=== PATIENT | female | born 1945 | race Caucasian/White ===

== ENCOUNTER 2017-07-22 13:56 | Inpatient (IN) | payer OTHER ==
--- NOTE | 2017-07-22 16:52 | PDGENHP ---
History and Physical - Chief Complaint CAD - History of Present Illness This is a 72F who was evaluated today at [facility] in [place] for c/o 1 week h/o of worsening exertional chest pain and hypertension. LHC was performed and revealed severe 3VD in need of surgical revascularization and pt was transferred to [facility] for CABG on 07/[address] Boyce. Pt is currently comfortable without complaints. She was recently diagnosed with HTN and started on HCTZ. She had her knee replaced about 4 weeks ago without issues. History Information - Allergies/Home Medication List Allergies/Adverse Reactions: Penicillins Allergy (Verified 07/22/17 16:52) Rash I have personally reviewed and updated: family history, medical history, social history, surgical history - Past Medical History arthritis (rheumatoid), hypertension - Surgical History Additional surgical history: right total knee replacement 06/09/2017 (Dr. Amish Kramer) - Family History Positive for: CAD, stroke - Social History Smoking Status: Never smoked Alcohol Use: Occasionally (1 glass wine/night) Drug Use: None Review of Systems Constitutional: Reports: no symptoms EENMT: Reports: no symptoms Cardiac: Reports: no symptoms Respiratory: Reports: no symptoms Gastrointestinal: Reports: no symptoms Genitourinary: Reports: no symptoms Muscolosketal: Reports: no symptoms Skin: Reports: no symptoms Neurological: Reports: no symptoms Physical Exam Temp Pulse Resp BP Pulse Ox 36.7 C 61 18 132/71 H 92 07/22/17 15:41 07/22/17 15:41 07/22/17 15:41 07/22/17 15:41 07/22/17 15:41 Constitutional: no apparent distress, appears nourished, not in pain Eyes: anicteric sclera Ears, Nose, Mouth, Throat: moist mucous membranes, hearing normal, ears appear normal Cardiovascular: regular rate and rhythym, No systolic murmur Respiratory: no respiratory distress, no rales or rhonchi, clear to auscultation Gastrointestinal: soft, non-tender abdomen, No distension Genitourinary: no bladder fullness Skin: warm, normal color Musculoskeletal: full muscle strength, other (right knee with well-healed scar) Neurologic: AAOx3, No weakness Psychiatric: interacting appropriately, not anxious, not encephalopathic, thought process linear Lab Data & Imaging Review 07/21/17 BMP: Na 139, K 3.4, Cl 103, CO2 28, BUN 21, Cr 0.9, Glucose 114 CBC: WBC 8.0, HGB 14.6, HCT 44.6, PLT 323 Chest X-Ray results: other (pending) Assessment & Plan Assessment: 72 F with severe CAD Plan: - CABG with Dr. Boyce 07/23/17 - Labs done at [facility] reviewed - Carotid US, CXR, type & screen pending
[2017-07-22] MEDS ORDERED: MUPIROCIN 2% 22 GM OINT NS ONE (16:53)
[2017-07-22] MEDS ORDERED: MANNITOL 20% 50 GM/250 ML BAG IV ONE (17:45)
[2017-07-22 17:59] LABS: HEMOGLOBIN A1C 5.4 % (4.0-6.0)
[2017-07-22] MEDS: MUPIROCIN 2% 22 GM OINT NS SCH (20:28)
[2017-07-22] MEDS ORDERED: CHLORHEXIDINE GLUC HIBICLENS 118 ML BTL TP SCH (21:00)
[2017-07-23] MEDS ORDERED: niCARdipine/NACL 200 ML IV SCH (06:00)
[2017-07-23] MEDS ORDERED: NA BICARBONATE 50 MEQ/50 ML VIAL ONE (06:33)
[2017-07-23] MEDS ORDERED: CALCIUM CHLORIDE 1 GM/10 ML INJ ONE (06:33)
[2017-07-23] MEDS ORDERED: HEPARIN 10,000 UNIT/10 ML MDV ONE (06:33)
[2017-07-23] MEDS ORDERED: ADENOSINE 6 MG/2 ML VIAL ONE (06:33)
[2017-07-23] MEDS ORDERED: MILRINONE/DEXTROSE/100 ML BAG IV ONE (06:33)
[2017-07-23] MEDS ORDERED: AMINOCAPROIC ACID 5 GM/20 ML VIAL ONE (06:33)
[2017-07-23] MEDS ORDERED: ceFAZolin 1 GM VIAL ONE (06:33)
[2017-07-23] MEDS ORDERED: PROTAMINE SULFATE 50 MG/5 ML VIAL IVP ONE (06:33)
[2017-07-23] MEDS ORDERED: POTASSIUM Cl (KCl) 20 MEQ/50 ML BAG IV ONE (06:33)
[2017-07-23] MEDS ORDERED: LIDOCAINE 2% 100 MG/5 ML SYR ONE (06:33)
[2017-07-23] MEDS ORDERED: MAGNESIUM SULFATE 1 GM/2 ML VIAL ONE (06:33)
[2017-07-23] MEDS ORDERED: AMIODARONE HCL 150 MG/3 ML VIAL ONE (06:33)
[2017-07-23] MEDS ORDERED: CITRATE DEXTROSE SOLN 500 ML BAG ONE (06:33)
[2017-07-23] MEDS ORDERED: ALBUMIN 5% 250 ML BOTTLE IV ONE (06:33)
[2017-07-23] MEDS ORDERED: niCARdipine/NACL/200 ML BAG IV ONE (06:33)
[2017-07-23] MEDS ORDERED: methylPREDNISolone SOD SUCC 1 GM/8 ML VIAL ONE (06:33)
[2017-07-23] MEDS ORDERED: DOPamine/DEXTROSE/250 ML BAG IV ONE (06:33)
[2017-07-23] MEDS ORDERED: ceFAZolin 2 GM/DEXTROSE 100 ML IV ONE (10:00)
[2017-07-23] MEDS ORDERED: SODIUM BICARBONATE 20 MEQ, LIDOCAINE 1% 10 ML in NORMOSOL-R 1,000 ML MISC ONE (10:00)
[2017-07-23] MEDS ORDERED: MANNITOL 20% 50 GM/250 ML BAG IV ONE (10:00)
[2017-07-23] MEDS ORDERED: PHENYLEPHRINE HCL 50 MG in NS 250 ML IV ONE (10:00)
[2017-07-23] MEDS ORDERED: NOREPINEPHRINE BITARTRATE 16 MG in NS 250 ML IV ONE (10:00)
[2017-07-23] MEDS ORDERED: INSULIN REGULAR HUMAN 100 UNIT in NS 100 ML IV ONE (10:00)
[2017-07-23] MEDS ORDERED: VERAPAMIL 5 MG, NITROGLYCERIN 2.5 MG, HEPARIN 500 UNIT, SODIUM BICARBONATE 0.2 MEQ in L... MISC ONE (10:00)
[2017-07-23] MEDS ORDERED: CITRATE DEXTROSE SOLN 500 ML BAG MISC ONE (10:00)
[2017-07-23] MEDS ORDERED: AMINOCAPROIC ACID 5 GM/20 ML VIAL IV ONE (10:00)
[2017-07-23] MEDS ORDERED: MANNITOL 25% 12.5 GM/50 ML VIAL IV ONE (10:00)
[2017-07-23] MEDS ORDERED: MINERAL OIL 10 ML VIAL ONE (11:43)
[2017-07-23] MEDS ORDERED: VERAPAMIL 5 MG/2 ML VIAL ONE (11:43)
[2017-07-23] MEDS ORDERED: PAPAVERINE HCL 60 MG/2 ML SDV ONE (11:43)
--- NOTE | 2017-07-23 11:57 | ASMTCASEMG ---
Living Arrangements What is your living Answers: With Spouse arrangement? Who do you live with? Type Of Residence What kind of residence do Answers: House you live in? Discharge Plan Comments Coordination Status Comments Notes: Pt admitted for pre CABG, CAD. Spoke w/ ROBINSON Albarran. Pt having heart surgery today then being transferred to ICU afterwards. Pt will return to PCU once stabilized. CM to follow for needs post surgery. Date Signed: 07/23/2017 11:57 AM Electronically Signed By:Delma Chin
[2017-07-23] MEDS ORDERED: MIDAZOLAM 2 MG/2 ML VIAL IVP ONE (13:08)
--- NOTE | 2017-07-23 13:08 | PDANEPAE ---
ANE History of Present Illness 72 yo for cabg ANE Past Medical History - Cardiovascular History Hx Hypertension: Yes Hx Arrhythmias: No Hx Chest Pain: Yes Hx Coronary Artery / Peripheral Vascular Disease: Yes Hx CHF / Valvular Disease: No Hx Palpitations: No - Pulmonary History Hx Asthma/Reactive Airway Disease: No Hx Recent Upper Respiratory Infection: No Hx Oxygen in Use at Home: No Hx Sleep Apnea: No Sleep Apnea Screening Result - Last Documented: Negative - Endocrine History Hx Diabetes: No - Chronic Pain History Chronic Pain: Yes ANE Review of Systems - Exercise capacity METS (RN): 4 METS ANE Patient History - Allergies Allergies/Adverse Reactions: Penicillins Allergy (Verified 07/22/17 16:52) Rash - Home Medications Home Medications: Adalimumab [Humira] 0 mg SQ Q14D 07/22/17 [Last Taken 07/14/17] Hydrochlorothiazide [HCTZ (*)] 12.5 mg PO DAILY 07/22/17 [Last Taken 07/21/17 08 :00] Meloxicam [Mobic 15 mg] 15 mg PO DAILY PRN 07/22/17 [Last Taken 07/21/17 08:00] Multivitamins [Multivitamin (*)] 1 tab PO DAILY 07/22/17 [Last Taken 07/22/17 08 :00] - NPO status NPO Since - Liquids (Date): 07/23/17 NPO Since - Liquids (Time): 00:00 NPO Since - Solids (Date): 07/23/17 NPO Since - Solids (Time): 00:00 - Smoking Hx Smoking Status: Never smoked - Alcohol Use Alcohol Use: Occasionally (1 glass wine/night) ANE Labs/Vital Signs - Vital Signs Blood Pressure: 139/86 Heart Rate: 74 Respiratory Rate: 14 O2 Sat (%): 93 Height: 5 ft 8 in Weight: 80.5 kg ANE Physical Exam - Airway Neck exam: FROM Mallampati Score: Class 2 Mouth exam: normal dental/mouth exam - Pulmonary Pulmonary: no respiratory distress - Cardiovascular Cardiovascular: regular rate and rhythym - ASA Status ASA Status: III ANE Anesthesia Plan Anesthesia Plan: general endotracheal anesthesia Lines/Monitors: arterial line, central line
[2017-07-23] MEDS ORDERED: PROPOFOL/EMULSION 500 MG/50 ML BOTTLE IV ONE (13:20)
[2017-07-23] MEDS ORDERED: fentaNYL 100 MCG/2 ML INJ ONE (13:20)
[2017-07-23] MEDS ORDERED: REMIFENTANIL HCL 1 MG VIAL ONE (13:20)
[2017-07-23] MEDS ORDERED: CEFAZOLIN 2 GM/DEXTROSE/100 ML BAG IV ONE (13:25)
--- NOTE | 2017-07-23 13:28 | PDHPUP ---
History & Physical Update H&P update statement: This history and physical update is based on an assessment of the patient which was completed after admission or registration (within 24 hours), but prior to the surgery/procedure. H&P changes: CXR NAF. Carotid US no flow limiting stenosis, antegrade flow bilat vertebrals. Antibody screen neg. A1c 5.4%. No CP or hemodynamic instability
[2017-07-23] MEDS ORDERED: DEXMEDETOMIDINE HCL 400 MCG in NS 100 ML IV SCH (13:30)
[2017-07-23] MEDS ORDERED: SUGAMMADEX SODIUM 200 MG/2 ML VIAL IVP ONE (16:26)
[2017-07-23] MEDS ORDERED: ONDANSETRON 4 MG/2 ML VIAL ONE (16:26)
[2017-07-23] MEDS ORDERED: MAGNESIUM SULF 2 GM/WATER 50 ML BAG IV ONE (16:36)
[2017-07-23] MEDS ORDERED: BISACODYL 10 MG SUPP PR PRN (16:48)
[2017-07-23] MEDS ORDERED: fentaNYL 100 MCG/2 ML INJ IVP PRN (16:48)
[2017-07-23] MEDS ORDERED: ACETAMINOPHEN 650 MG SUPP PR PRN (16:48)
[2017-07-23] MEDS ORDERED: MAGNESIUM HYDROXIDE 30 ML UDCUP PO PRN (16:48)
[2017-07-23] MEDS ORDERED: ONDANSETRON 4 MG/2 ML VIAL IVP PRN (16:48)
[2017-07-23] MEDS ORDERED: ONDANSETRON DISINTEGRATING 4 MG TAB PO PRN (16:48)
[2017-07-23] MEDS ORDERED: CEPACOL LOZENGE PO PRN (16:48)
[2017-07-23] MEDS ORDERED: ALBUMIN 5% 250 ML IV PRN (16:48)
[2017-07-23] MEDS ORDERED: METOCLOPRAMIDE 10 MG/2 ML VIAL IVP PRN (16:48)
[2017-07-23] MEDS ORDERED: SODIUM CL NASAL 45 ML BTL EACHNARE PRN (16:48)
[2017-07-23] MEDS ORDERED: D50W 25 GM/50 ML SYR IVP PRN (16:48)
[2017-07-23] MEDS ORDERED: MAGNESIUM SULF 2 GM/WATER 50 ML IV ONE (16:48)
[2017-07-23] MEDS ORDERED: POLYETHYLENE GLYCOL 3350 17 GM PKT PO PRN (16:48)
[2017-07-23] MEDS ORDERED: PANTOPRAZOLE SODIUM 40 MG in NS 100 ML IV ONE (16:48)
[2017-07-23] MEDS ORDERED: MEPERIDINE 25 MG/ML SYR IVP PRN (16:48)
[2017-07-23] MEDS ORDERED: LACTULOSE 20 GM/30 ML UDCUP PO PRN (16:48)
[2017-07-23] MEDS ORDERED: NS 1,000 ML IV SCH (17:00)
[2017-07-23] MEDS ORDERED: INSULIN REGULAR HUMAN 100 UNIT in NS 100 ML IV SCH (17:00)
[2017-07-23 17:18] LABS: CALCULATED OXYGEN SATURATION 88 % (92-95); O2 CONCENTRATIION 100 % (0-100)
--- NOTE | 2017-07-23 17:52 | POSTOPPROG ---
Post Op Note Date of Operation: 07/23/17 Surgeon: Shravan Boyce Electric Fan Assembler: Sean Anesthesiologist: Darvin Anesthesia: GET(General Endotracheal) Pre-op Diagnosis: AMI, ASHD Procedure: CAB 4 Marquez-Lad, SVG-Dg, [id number]@, EVH Atriclip Inf/Abcess present in the surg proc area at time of surgery?: No EBL: 50-100
--- NOTE | 2017-07-23 18:24 | GOP ---
[f rep st] OPERATIVE REPORT DATE OF OPERATION: 07/23/2017 SURGEON: Shravan Boyce DO DIP TUBE ASSEMBLER MACHINE: Lula Estrada, PAC. ANESTHESIA: Hazel Townsend M.D. PREOPERATIVE DIAGNOSIS: Acute myocardial infarction with post infarction angina pectoris and 3-vess el disease equivalent. POSTOPERATIVE DIAGNOSIS: Acute myocardial infarction with post infarction angina pectoris and 3-ves chace disease equivalent. PROCEDURE PERFORMED: 1. Coronary artery bypass grafting x4 with left internal mammary artery to the left anterior descen ding, saphenous vein graft to the diagonal, saphenous vein graft to the 1st OM, sequential 2nd OM. 2. Atrial clip to the left atrial appendage. 3. Endoscopic vein harvest. FINDINGS: The patient presented with troponin elevation and chest pain, underwent diagnostic cathet erization and was referred for surgical intervention. The patient was consented, brought to the ope rating room, intubated. Monitoring lines were placed. She was prepped and draped in sterile classi marie manner. Sternotomy was performed. She was heparinized after the mammary was harvested. The ve in was harvested endoscopically from the left leg by PRAVEEN Charles, who first assisted throughout the procedure. We then heparinized the patient, cannulated her in standard fashion. Cardiopulmonary bypass was beg un. A cardioplegic arrest was obtained with antegrade cardioplegia and topical hypothermia as well as systemic cooling. The 2nd OM was a 1.2 mm vessel. The 1st OM was a 1.8 mm vessel. They were gr afted sequentially with good quality vein which was then brought off the ascending aorta with a cros s-clamp on. We then grafted the diagonal in a similar fashion. It was a 2.2 mm vessel with minimal distal disease. It was brought off the ascending aorta in the standard fashion. Rewarming was begun. We then place d a 35 mm atrial clip across the base of the left atrial appendage which was free of thrombus on tra nsesophageal echo. We then grafted the mammary to the mid-LAD which was a 2.5 mm vessel. The mammary was an excellent quality vessel with brisk flow. It was tacked to the epicardium. The cross-clamp was removed with suction on the ascending aortic vent. Spontaneous cardiac activity was noted to resume. The patien t was rewarmed and weaned from bypass. Heparin was reversed with protamine. Cannula was removed an d oversewn. 2 ventricular pacing wires, 1 left pleural and 1 mediastinal drain were placed. The th ymic fat and pericardium were closed. Chest was closed in standard fashion. Patient was returned to the ICU in stable condition. DESCRIPTION OF PROCEDURE: /[id number]/MODL
[2017-07-23] MEDS: MUPIROCIN 2% 22 GM OINT NS SCH ×2 (19:01→20:53)
[2017-07-23] MEDS: POTASSIUM Cl (KCl) 50 ML IV PRN ×2 (20:24→21:22)
[2017-07-23] MEDS: ceFAZolin 2 GM/DEXTROSE 100 ML IV SCH (22:12)
[2017-07-23] MEDS: HYDROCODONE/APAP 5/325 TAB PO PRN (22:18)
[2017-07-23] MEDS: HEPARIN 5,000 UNIT/0.5 ML SYR SC SCH (22:26)
[2017-07-24] MEDS: HYDROCODONE/APAP 5/325 TAB PO PRN ×4 (04:24→20:07)
[2017-07-24 04:36] LABS: % IMMATURE GRANULYOCYTES 0.3 % (0.0-1.1); ABSOLUTE IMMATURE GRANULOCYTES 0.04 10^3/uL (0.00-0.10); ADD DIFF? NO; ADD MORPH? NO; ADD SCAN? NO; ATYPICAL LYMPHOCYTE FLAG 10 (0-99); FRAGMENT RBC FLAG 0 (0-99); HEMATOCRIT 37.4 % (38.0-47.0); HEMOGLOBIN 12.1 g/dL (12.6-16.3); LEFT SHIFT FLG 10 (0-99); LIPEMIA HEMOLYSIS FLAG 80 (0-99); MEAN CELL HEMOGLOBIN 29.8 pg (27.9-34.1); MEAN CELL HEMOGLOBIN CONCENTR. 32.4 g/dL (32.4-36.7); MEAN CELL VOLUME 92.1 fL (81.5-99.8); MEAN PLATELET VOLUME 9.9 fL (8.7-11.7); PLATELET CLUMPS FLAG 10 (0-99); PLATELET COUNT 188 10^3/uL (150-400); RED BLOOD CELL COUNT 4.06 10^6/uL (4.18-5.33); RED CELL DISTRIBUTION WIDTH 13.2 % (11.5-15.2)
[2017-07-24 05:03] LABS: ANION GAP 8 mEq/L (8-16); CALCIUM 8.2 mg/dL (8.5-10.4); CARBON DIOXIDE 21 mEq/l (22-31); CHLORIDE 109 mEq/L (97-110); CREATININE 0.6 mg/dL (0.6-1.0); GLOMERULAR FILTRATION RATE > 60; GLUCOSE 76 mg/dL (70-100); POTASSIUM 4.3 mEq/L (3.5-5.2); SODIUM 138 mEq/L (134-144)
[2017-07-24] MEDS: ceFAZolin 2 GM/DEXTROSE 100 ML IV SCH ×3 (05:48→21:11)
[2017-07-24] MEDS: HEPARIN 5,000 UNIT/0.5 ML SYR SC SCH ×3 (05:48→21:11)
--- NOTE | 2017-07-24 07:21 | SOAPPROG ---
SOAP Progress Note Assessment/Plan: Assessment: POD#1 Urgent CABG x 4 (WASHINGTON-LAD, SV-D1, SV sequentially OM1-OM2), EVH left thigh, prophylactic AtriClip ligation left atrial appendage Post infarction angina/severe CAD w preserved LV systolic fx - Tx from [facility]. Hemodynamically stable awaiting CABG. Uncomplicated revasc. Extubated in the OR. No vasoactive meds, dysrhythmias or backup pacing. Adequately auto- diuresing moderate volume overload. Secondary prevention w ASA, BB as tolerated , and statin when eating well. Acute expected blood loss anemia - Stable. No blood transfusions. No significant CTOP. VTE prophylaxis with SQ hep. Plan: Routine POD#1 orders re lines, drains, orals and mobility. Encourage oral intake. NS IV prn SBP < 90. Metoprolol tartrate tonight or tomorrow pending BP. Tx to PCU. 07/24/17 07:15 Subjective: Doing ok. Satisfactory analgesia. Tolerating orals. Disappointed that got a little woozy trying to walk this am. Objective: Vital Signs Temp Pulse Resp BP Pulse Ox 37 C 77 15 103/59 L 95 07/24/17 05:00 07/24/17 06:00 07/24/17 06:00 07/24/17 06:00 07/24/17 06:00 Laboratory Results 07/24/17 04:15 07/24/17 04:15 07/23/17 07/24/17 07/25/17 05:59 05:59 05:59 Intake Total 620 1527 Output Total 1985 Balance 620 -458 Stable HR, rhythm, BP and sats. CVPs 6-8. Balanced I/Os. Min CTOP. CXR -> No PTX, no pulm vasc congestion, decr basilar atelectasis. Labs as expected. Physical Exam - Physical Exam General Appearance: alert, no apparent distress Respiratory: lungs clear (grossly), other (blakes x 2 to bulb suction, serosang drainage) Cardiac/Chest: regular rate, rhythm, other (Sternum grossly stable. Sternotomy CDI. Vwires intact.) Abdomen: normal bowel sounds, non-tender, soft Skin: warm/dry Extremities: swelling (1+ gen), other (LLE wrap intact) ICD10 Worksheet Patient Problems: Problems Problem Status Onset Acute blood loss anemia Acute CAD, multiple vessel Acute S/P CABG x 4 Acute ~07/23/17 chronic disease mgmt/transitional care Acute
[2017-07-24] MEDS: PANTOPRAZOLE SODIUM 40 MG TAB PO SCH (09:58)
[2017-07-24] MEDS: ASPIRIN 81 MG CHEWABLE TAB PO SCH (09:58)
[2017-07-24] MEDS: MUPIROCIN 2% 22 GM OINT NS SCH (10:01)
--- NOTE | 2017-07-24 15:42 | ASMTCMCOM ---
CM Note CM Note Notes: Pt POD #1 following surgery yesterday. Pt will be tx back to PCU once stable. C/ to follow for needs. Date Signed: 07/24/2017 03:41 PM Electronically Signed By:Mel Oneill
[2017-07-24] MEDS ORDERED: AMIODARONE HCL 150 MG/100 ML BAG (1.5 MG/ML) IV ONE (16:40)
[2017-07-24] MEDS ORDERED: AMIODARONE A.FIB-LOAD DOSE(ORDER 1/3) IV ONE (17:00)
[2017-07-24] MEDS ORDERED: AMIODARONE A.FIB-6HR INFSN (ORDER 2/3) IV ONE (17:00)
[2017-07-24] MEDS: SENNOSIDES/DOCUSATE SODIUM TAB PO SCH (19:31)
[2017-07-24] MEDS: METOPROLOL TARTRATE 25 MG TAB PO SCH (21:11)
[2017-07-24] MEDS ORDERED: AMIODARONE A.FIB-18HR INFSN (ORDER 3/3) IV ONE (23:00)
[2017-07-25] MEDS: HYDROCODONE/APAP 5/325 TAB PO PRN ×5 (03:18→20:39)
[2017-07-25] MEDS: ceFAZolin 2 GM/DEXTROSE 100 ML IV SCH (05:30)
[2017-07-25 05:48] LABS: POTASSIUM 4.1 mEq/L (3.5-5.2)
[2017-07-25] MEDS: HEPARIN 5,000 UNIT/0.5 ML SYR SC SCH ×3 (06:07→20:42)
--- NOTE | 2017-07-25 07:42 | SOAPPROG ---
SOAP Progress Note Assessment/Plan: Assessment: POD#2 Urgent CABG x 4 (WASHINGTON-LAD, SV-D1, SV sequentially OM1-OM2), EVH left thigh, prophylactic AtriClip ligation left atrial appendage Post infarction angina/severe CAD w preserved LV systolic fx - Tx from [facility]. Hemodynamically stable awaiting CABG. Uncomplicated revasc. Extubated in the OR. No vasoactive meds, bradyarrhythmias or backup pacing. Moderate volume overload. Secondary prevention w ASA, BB as tolerated, and statin when eating well. Postoperative PAF - Onset of Afib yest afternoon. Relatively asx. Treated with amio as per protocol. Sufficient BP for low dose BB. PAF as of this am. [id number]- VASc score of 4. Consider DOAC if fails to hold sinus. Acute expected blood loss anemia - Stable. No blood transfusions. No significant CTOP. VTE prophylaxis with SQ hep. Plan: Remove mediastinal drain. Remove Vwire. Cont metoprolol 12.5 mg BID. Consider inc to 25 mg tonight. Transition amio to orals tonight. Begin gentle diuresis. Inc activity as tolerated. 07/25/17 07:35 Subjective: Doing ok. Improving mobility without dizziness. Adequate analgesia on [place]. Appetite remains poor. Objective: Vital Signs Temp Pulse Resp BP Pulse Ox 36.8 C 111 H 17 104/69 95 07/25/17 04:00 07/25/17 04:00 07/25/17 04:00 07/25/17 04:00 07/25/17 04:00 Laboratory Results 07/24/17 04:15 07/25/17 05:00 07/24/17 07/25/17 07/26/17 05:59 05:59 05:59 Intake Total 1527 2882 Output Total 1985 1370 Balance -458 1512 AF v VVR, no sustained RVR, yest afternoon thru today early am. Currently SR 70s. SBP > 100. K > 4. Almost off O2. Positive fluid balance. +6 kg overall. Mediastinal drain at removal criteria. Left pleural drain output still a bit high. - Pending Discharge Pending Discharge Within 48 Hours: Yes Pending Discharge Date: 07/27/17 Pending Discharge Time: 11:00 Physical Exam - Physical Exam General Appearance: alert, no apparent distress Respiratory: crackles (bases), other (blakes x 2 to bulb suction, thin serosang drainage.) Cardiac/Chest: regular rate, rhythm, other (Sternotomy and LLE venotomy CDI. V wires intact) Abdomen: normal bowel sounds, non-tender, soft Skin: warm/dry Extremities: swelling (1+) ICD10 Worksheet Patient Problems: Problems Problem Status Onset Acute blood loss anemia Acute CAD, multiple vessel Acute S/P CABG x 4 Acute ~07/23/17 chronic disease mgmt/transitional care Acute
[2017-07-25] MEDS ORDERED: LIDOCAINE 1% 5 ML SDV ONE (08:40)
[2017-07-25] MEDS: ASPIRIN 81 MG CHEWABLE TAB PO SCH (08:49)
[2017-07-25] MEDS: SENNOSIDES/DOCUSATE SODIUM TAB PO SCH ×2 (08:50→20:39)
[2017-07-25] MEDS: METOPROLOL TARTRATE 25 MG TAB PO SCH ×2 (08:50→20:40)
[2017-07-25] MEDS: PANTOPRAZOLE SODIUM 40 MG TAB PO SCH (08:50)
[2017-07-25] MEDS ORDERED: POTASSIUM CL 10 MEQ TAB PO ONE (15:00)
[2017-07-25] MEDS ORDERED: FUROSEMIDE 20 MG/2 ML VIAL IVP ONE (15:00)
[2017-07-25] MEDS: AMIODARONE HCL 200 MG TAB PO SCH (20:40)
[2017-07-26 03:32] LABS: HEMATOCRIT 31.1 % (38.0-47.0); MEAN CELL HEMOGLOBIN 29.7 pg (27.9-34.1); MEAN CELL HEMOGLOBIN CONCENTR. 32.2 g/dL (32.4-36.7); MEAN CELL VOLUME 92.3 fL (81.5-99.8); RED BLOOD CELL COUNT 3.37 10^6/uL (4.18-5.33); RED CELL DISTRIBUTION WIDTH 13.2 % (11.5-15.2)
[2017-07-26 03:47] LABS: ANION GAP 5 mEq/L (8-16); CALCIUM 8.3 mg/dL (8.5-10.4); CARBON DIOXIDE 28 mEq/l (22-31); CHLORIDE 104 mEq/L (97-110); CREATININE 0.6 mg/dL (0.6-1.0); GLOMERULAR FILTRATION RATE > 60; GLUCOSE 106 mg/dL (70-100); POTASSIUM 3.9 mEq/L (3.5-5.2); SODIUM 137 mEq/L (134-144)
[2017-07-26] MEDS: HEPARIN 5,000 UNIT/0.5 ML SYR SC SCH (05:14)
[2017-07-26] MEDS: HYDROCODONE/APAP 5/325 TAB PO PRN ×4 (05:14→21:08)
[2017-07-26] MEDS ORDERED: AMIODARONE HCL 100 ML IV ONE ×2 (05:58→08:51)
[2017-07-26] MEDS ORDERED: POTASSIUM CL 20 MEQ TAB PO ONE (07:25)
--- NOTE | 2017-07-26 07:26 | SOAPPROG ---
SOAP Progress Note Assessment/Plan: POD#3 Urgent CABG x 4 (WASHINGTON-LAD, SV-D1, SV sequentially OM1-OM2), EVH left thigh , prophylactic AtriClip ligation left atrial appendage Post infarction angina/severe CAD w preserved LV systolic fx - Tx from [facility]. Hemodynamically stable awaiting CABG. Uncomplicated revasc. Extubated in the OR. No vasoactive meds, bradyarrhythmias or backup pacing. Moderate volume overload. Secondary prevention w ASA, BB as tolerated, and statin when eating well. Postoperative paroxysmal PAF - Continue amiodarone/beta-pavel. [id number] score of 4. Will start Eliquis today. Acute expected blood loss anemia - Stable. No blood transfusions. No significant CTOP. VTE prophylaxis with Eliquis. Subjective: Some pain at chest tube site relieved with oral medications. Denies SOB. Objective: Vital Signs Temp Pulse Resp BP Pulse Ox 36.8 C 113 H 16 91/58 L 95 07/26/17 07:20 07/26/17 07:20 07/26/17 07:20 07/26/17 07:20 07/26/17 07:20 Laboratory Results 07/26/17 03:25 07/26/17 03:25 07/25/17 07/26/17 07/27/17 05:59 05:59 05:59 Intake Total 2882 819 100 Output Total 1370 1650 100 Balance 1512 -831 0 Physical Exam - Physical Exam General Appearance: WD/WN, alert, no apparent distress EENT: No scleral icterus (R), No scleral icterus (L) Neck: normal inspection Respiratory: No respiratory distress Cardiac/Chest: irregularly irregular Abdomen: non-tender, soft, No distended Skin: normal color, warm/dry Extremities: No pedal edema Neuro/Psych: no motor/sensory deficits, alert, normal mood/affect, oriented x 3 ICD10 Worksheet Patient Problems: Problems Problem Status Onset Acute blood loss anemia Acute CAD, multiple vessel Acute Postoperative atrial fibrillation Acute S/P CABG x 4 Acute ~07/23/17 chronic disease mgmt/transitional care Acute
[2017-07-26] MEDS: ASPIRIN 81 MG CHEWABLE TAB PO SCH (07:54)
[2017-07-26] MEDS: SENNOSIDES/DOCUSATE SODIUM TAB PO SCH ×2 (07:54→21:08)
[2017-07-26] MEDS: AMIODARONE HCL 200 MG TAB PO SCH ×2 (07:55→21:09)
[2017-07-26] MEDS: MULTIVITAMINS 1 EACH TAB PO SCH (07:55)
[2017-07-26] MEDS: PANTOPRAZOLE SODIUM 40 MG TAB PO SCH (07:55)
[2017-07-26] MEDS: ATORVASTATIN CALCIUM 10 MG TAB PO SCH (07:55)
[2017-07-26] MEDS ORDERED: METOPROLOL TARTRATE 25 MG TAB PO SCH (09:00)
[2017-07-26] MEDS: APIXABAN 2.5 MG TAB PO SCH ×2 (11:09→21:09)
[2017-07-26] MEDS ORDERED: METOPROLOL TARTRATE 25 MG TAB PO ONE (13:50)
[2017-07-26] MEDS ORDERED: METOPROLOL TARTRATE 5 MG/5 ML INJ ONE (13:52)
[2017-07-26] MEDS: METOPROLOL TARTRATE 5 MG/5 ML INJ IVP SCH ×3 (14:00→16:42)
[2017-07-26] MEDS ORDERED: METOPROLOL TARTRATE 25 MG TAB ONE ×2 (16:21→16:23)
[2017-07-26] MEDS: METOPROLOL TARTRATE 25 MG TAB PO SCH (21:09)
[2017-07-27] MEDS: HYDROCODONE/APAP 5/325 TAB PO PRN ×2 (05:43→21:47)
[2017-07-27 06:00] LABS: POTASSIUM 3.9 mEq/L (3.5-5.2)
--- NOTE | 2017-07-27 07:01 | SOAPPROG ---
SOAP Progress Note Assessment/Plan: Assessment: POD#4 Urgent CABG x 4 (WASHINGTON-LAD, SV-D1, SV sequentially OM1-OM2), EVH left thigh, prophylactic AtriClip ligation left atrial appendage Post infarction angina/severe CAD w preserved LV systolic fx - Tx from [facility]. Hemodynamically stable awaiting CABG. Uncomplicated revasc. Extubated in the OR. No vasoactive meds, bradyarrhythmias or backup pacing. Moderate volume overload. Secondary prevention w ASA, statin, and BB as tolerated. Postoperative PAF - Onset of Afib POD#1. Relatively asx. Treated with amio as per protocol. Sufficient BP for low dose BB. PAF thru yest afternoon. Started on Eliquis for [id number] score of 4. Acute expected blood loss anemia - Stable. No blood transfusions. H/H > 10/30 maintained. VTE prophylaxis with Eliquis. Plan: Cont metoprolol 37.5 mg BID. Cont amio 200 mg BID. Cont Eliquis 2.5 mg BID. Gentle diuresis. Relax bowel regimen. Cont inc activity as tolerated. Dispo - Anticipate home tomorrow. 07/27/17 07:01 Subjective: Doing well. Improving appetite. Walked 1 lap around the [place] with relative ease. +BMs. Comfortable going home tomorrow. Objective: Vital Signs Temp Pulse Resp BP Pulse Ox 36.7 C 86 20 117/70 94 07/27/17 03:14 07/27/17 03:14 07/27/17 03:14 07/27/17 03:14 07/27/17 03:14 Laboratory Results 07/26/17 03:25 07/27/17 05:43 07/26/17 07/27/17 07/28/17 05:59 05:59 05:59 Intake Total 819 1900 Output Total 1650 970 Balance -831 930 Holding SR since yest afternoon. BPs > 100. Nearly off O2. Positive fluid balance. +4 kg overall. - Pending Discharge Pending Discharge Within 24 Hours: Yes Pending Discharge Date: 07/28/17 Pending Discharge Time: 11:00 Physical Exam - Physical Exam General Appearance: alert, no apparent distress Respiratory: crackles (bases) Cardiac/Chest: regular rate, rhythm, other (Sternum grossly stable. Sternotomy and LLE venotomy CDI.) Abdomen: non-tender, soft Skin: warm/dry Extremities: swelling (trace) ICD10 Worksheet Patient Problems: Problems Problem Status Onset Acute blood loss anemia Acute CAD, multiple vessel Acute Postoperative atrial fibrillation Acute S/P CABG x 4 Acute ~07/23/17 chronic disease mgmt/transitional care Acute
[2017-07-27] MEDS: ASPIRIN 81 MG CHEWABLE TAB PO SCH (08:33)
[2017-07-27] MEDS: APIXABAN 2.5 MG TAB PO SCH ×2 (08:34→19:54)
[2017-07-27] MEDS: ATORVASTATIN CALCIUM 10 MG TAB PO SCH (08:34)
[2017-07-27] MEDS: AMIODARONE HCL 200 MG TAB PO SCH ×2 (08:34→19:53)
[2017-07-27] MEDS: METOPROLOL TARTRATE 25 MG TAB PO SCH (08:34)
[2017-07-27] MEDS: PANTOPRAZOLE SODIUM 40 MG TAB PO SCH (08:35)
[2017-07-27] MEDS: MULTIVITAMINS 1 EACH TAB PO SCH (08:35)
[2017-07-27] MEDS ORDERED: POTASSIUM CL 20 MEQ TAB PO ONE ×2 (09:00→12:00)
[2017-07-27] MEDS ORDERED: SENNOSIDES/DOCUSATE SODIUM TAB PO PRN (09:00)
[2017-07-27] MEDS ORDERED: FUROSEMIDE 20 MG TAB PO SCH (09:00)
[2017-07-27] MEDS: ACETAMINOPHEN 325 MG TAB PO PRN (11:22)
[2017-07-27] MEDS ORDERED: AMIODARONE HCL 100 ML IV ONE (17:31)
[2017-07-27] MEDS: METOPROLOL TARTRATE 50 MG TAB PO SCH (19:50)
[2017-07-28 05:15] LABS: POTASSIUM 3.6 mEq/L (3.5-5.2)
--- NOTE | 2017-07-28 07:26 | SOAPPROG ---
SOAP Progress Note Assessment/Plan: Assessment: POD#5 Urgent CABG x 4 (WASHINGTON-LAD, SV-D1, SV sequentially OM1-OM2), EVH left thigh, prophylactic AtriClip ligation left atrial appendage Post infarction angina/severe CAD w preserved LV systolic fx - Tx from [facility]. Hemodynamically stable awaiting CABG. Uncomplicated revasc. Extubated in the OR. No vasoactive meds, bradyarrhythmias or backup pacing. Moderate volume overload. Secondary prevention w ASA, BB, and statin. Postoperative PAF - Onset of Afib POD#1. Relatively asx. Treated with amio as per protocol. Escalating BB as tolerated for recurrent PAF. Started on Eliquis for [id number] score of 4. Acute expected blood loss anemia - Stable. No blood transfusions. H/H > 10/30 maintained. VTE prophylaxis with Eliquis. Plan: Cont metoprolol 50 mg BID. Bolus IV metoprolol 2.5-5 mg prn RVR. Cont amio 200 mg BID. Cont Eliquis 2.5 mg BID. Intensify diuresis. Replete K. Cont inc activity as tolerated. Dispo - Anticipate home tomorrow if rhythm stable. 07/28/17 07:24 Subjective: Doing ok. Improving appetite. Tolerating light activity well. Objective: Vital Signs Temp Pulse Resp BP Pulse Ox 36.5 C 115 H 20 125/83 H 96 07/28/17 07:13 07/28/17 07:13 07/28/17 07:13 07/28/17 07:13 07/28/17 07:13 Laboratory Results 07/26/17 03:25 07/28/17 04:42 07/27/17 07/28/17 07/29/17 05:59 05:59 05:59 Intake Total 1900 1000 Output Total 970 2400 400 Balance 930 -1400 -400 Back in AF yest afternoon. Improved rate control with bolus amio and inc pm BB. No hypotension. Almost off O2 at rest. Desats with activity. Improving fluid balance on lasix. Now within 2 kg of preop wt. CXR-> improved insp effort, sl inc in rt pl effusion. Physical Exam - Physical Exam General Appearance: alert, no apparent distress Respiratory: decreased breath sounds (bases) Cardiac/Chest: tachycardia, irregularly irregular, other (Sternum grossly stable. Sternotomy and LLE venotomy CDI) Abdomen: non-tender, soft Skin: warm/dry Extremities: other (no visible edema) ICD10 Worksheet Patient Problems: Problems Problem Status Onset Acute blood loss anemia Acute CAD, multiple vessel Acute Postoperative atrial fibrillation Acute S/P CABG x 4 Acute ~07/23/17 chronic disease mgmt/transitional care Acute
[2017-07-28] MEDS ORDERED: METOPROLOL TARTRATE 5 MG/5 ML INJ IVP ONE (07:30)
[2017-07-28] MEDS: ASPIRIN 81 MG CHEWABLE TAB PO SCH (07:58)
[2017-07-28] MEDS: AMIODARONE HCL 200 MG TAB PO SCH ×2 (07:58→20:48)
[2017-07-28] MEDS ORDERED: POTASSIUM CL 20 MEQ TAB PO ONE ×2 (08:00→09:00)
[2017-07-28] MEDS: MULTIVITAMINS 1 EACH TAB PO SCH (08:00)
[2017-07-28] MEDS: ATORVASTATIN CALCIUM 10 MG TAB PO SCH (08:00)
[2017-07-28] MEDS: APIXABAN 2.5 MG TAB PO SCH ×2 (08:00→20:47)
[2017-07-28] MEDS: PANTOPRAZOLE SODIUM 40 MG TAB PO SCH (08:00)
[2017-07-28] MEDS ORDERED: FUROSEMIDE 40 MG/4 ML VIAL IVP ONE (08:00)
[2017-07-28] MEDS: ACETAMINOPHEN 325 MG TAB PO PRN (08:06)
[2017-07-28] MEDS: METOPROLOL TARTRATE 50 MG TAB PO SCH ×2 (08:13→20:48)
[2017-07-28] MEDS ORDERED: ADALIMUMAB SQ SCH (11:00)
[2017-07-28] MEDS: HYDROCODONE/APAP 5/325 TAB PO PRN (21:44)
[2017-07-29 06:21] LABS: HEMATOCRIT 33.1 % (38.0-47.0); HEMOGLOBIN 10.4 g/dL (12.6-16.3); MEAN CELL HEMOGLOBIN 29.1 pg (27.9-34.1); MEAN CELL HEMOGLOBIN CONCENTR. 31.4 g/dL (32.4-36.7); MEAN CELL VOLUME 92.5 fL (81.5-99.8); RED BLOOD CELL COUNT 3.58 10^6/uL (4.18-5.33); RED CELL DISTRIBUTION WIDTH 13.6 % (11.5-15.2)
[2017-07-29 06:41] LABS: ANION GAP 7 mEq/L (8-16); CALCIUM 9.2 mg/dL (8.5-10.4); CARBON DIOXIDE 28 mEq/l (22-31); CHLORIDE 101 mEq/L (97-110); CREATININE 0.7 mg/dL (0.6-1.0); GLOMERULAR FILTRATION RATE > 60; GLUCOSE 92 mg/dL (70-100); POTASSIUM 4.2 mEq/L (3.5-5.2); SODIUM 136 mEq/L (134-144)
--- NOTE | 2017-07-29 07:13 | SOAPPROG ---
SOAP Progress Note Assessment/Plan: Assessment: POD#6 Urgent CABG x 4 (WASHINGTON-LAD, SV-D1, SV sequentially OM1-OM2), EVH left thigh, prophylactic AtriClip ligation left atrial appendage Post infarction angina/severe CAD w preserved LV systolic fx - Tx from [facility]. Hemodynamically stable awaiting CABG. Uncomplicated revasc. Extubated in the OR. No vasoactive meds, bradyarrhythmias or backup pacing. Actively diuresing moderate volume overload with steady reduction in supplemental O2 needs. Secondary prevention w ASA, BB, and statin. Postoperative PAF - Onset of Afib POD#1. Relatively asx. Treated with amio as per protocol. BB escalated as tolerated for recurrent PAF. SR held since mid morning yest. Started on Eliquis for [id number] score of 4. Acute expected blood loss anemia - Stable. No blood transfusions. H/H > 10/30 maintained. VTE prophylaxis with Eliquis. Recent rt TKA - Mobile in the home with outpt PT. Compressive hose and elevation during the day. Plan: Relax diuresis. Ok for discharge later today with home O2. Instructions re diet, meds, activity, wound care and f/u to be reviewed in presence of . 07/29/17 06:57 Subjective: Better each day. Improving stamina and mobility. No longer feels swollen. Showered w min assistance. Nl bowel fx. Objective: Vital Signs Temp Pulse Resp BP Pulse Ox 36.7 C 84 17 127/70 H 95 07/29/17 04:00 07/29/17 04:00 07/29/17 04:00 07/29/17 04:00 07/29/17 04:00 Laboratory Results 07/29/17 06:02 07/29/17 06:02 07/28/17 07/29/17 07/30/17 05:59 05:59 05:59 Intake Total 1000 1250 Output Total 2400 2350 Balance -1400 -1100 Holding SR. No hypotension. Cont to diurese well. Now within 1 kg of preop wt. Off O2 at rest, desatting to mid 80s% with activity. Labs as expected. Physical Exam - Physical Exam General Appearance: alert, no apparent distress Respiratory: lungs clear Cardiac/Chest: regular rate, rhythm, other (Sternotomy and LLE venotomy CDI.) Abdomen: non-tender, soft Skin: warm/dry Extremities: other (no visible edema) ICD10 Worksheet Patient Problems: Problems Problem Status Onset Acute blood loss anemia Acute CAD, multiple vessel Acute Postoperative atrial fibrillation Acute S/P CABG x 4 Acute ~07/23/17 chronic disease mgmt/transitional care Acute
[2017-07-29] MEDS ORDERED: FUROSEMIDE 40 MG TAB PO SCH (09:00)
[2017-07-29] MEDS ORDERED: POTASSIUM CL 20 MEQ TAB PO SCH (09:00)
[2017-07-29] MEDS: ATORVASTATIN CALCIUM 10 MG TAB PO SCH (09:02)
[2017-07-29] MEDS: PANTOPRAZOLE SODIUM 40 MG TAB PO SCH (09:02)
[2017-07-29] MEDS: ASPIRIN 81 MG CHEWABLE TAB PO SCH (09:02)
[2017-07-29] MEDS: AMIODARONE HCL 200 MG TAB PO SCH (09:02)
[2017-07-29] MEDS: APIXABAN 2.5 MG TAB PO SCH (09:02)
[2017-07-29] MEDS: MULTIVITAMINS 1 EACH TAB PO SCH (09:03)
[2017-07-29] MEDS: METOPROLOL TARTRATE 50 MG TAB PO SCH (09:03)
[2017-07-29] MEDS: ACETAMINOPHEN 325 MG TAB PO PRN (09:06)
[2017-07-29] MEDS ORDERED: PNEUMOC 13-VAL CONJ-DIP CRM/PF 0.5 ML SYR IM ONE (10:09)
[2017-07-29 11:57] VITALS: BP 97/56; PULSE 66; RESP 21; TEMP 97.8; O2SAT 91
--- NOTE | 2017-07-29 12:00 | PDHOMEO2F ---
Home Oxygen Face to Face Home Orders: I certify that a physician or a nurse practitioner or physician's assistant professor of psychology has had a [id number] encounter with this patient on the date of this order due to the diagnosis listed, which relates to the primary reason the patient requires home oxygen. Alternative treatments have been tried, or considered, and deemed ineffective. It is anticipated that supplemental oxygen will result in improvement with treatment. Home oxygen qualifying diagnosis: cad Home oxygen secondary diagnosis: anemia, basilar atelectasis SpO2 on room air (%): 85 Frequency of home oxygen needed: with activity Home oxygen liters per minute: 1 Home oxygen delivery device: nasal cannula Concentrator: Yes E-tanks for mobility and back up: Yes If ordering portable O2, is the patient mobile in the home?: Yes I certify that, based on these findings, the home oxygen is medically necessary for this patient for the following length of time. Length of time home oxygen needed: 1 month
--- NOTE | 2017-07-29 20:31 | PDDCSUM ---
Discharge Summary Discharge Summary: DATE OF ADMISSION: 07/22/17 DATE OF DISCHARGE: 07/29/17 DISPOSITION: Home, self-care PRINCIPAL ADMISSION DIAGNOSES: 1. Post infarction angina 2. Severe multivessel coronary artery disease PRINCIPAL DISCHARGE DIAGNOSES: 1. Carotid artery disease excluded 2. Status post coronary artery bypass grafting x 4 3. Status post prophylactic AtriClip ligation of the left atrial appendage 4. Acute expected blood loss anemia 5. Postoperative paroxysmal atrial fibrillation HISTORY OF PRESENT ILLNESS: 72 yo hypertensive female evaluated at [facility] for a 1 wk hx of worsening exertional chest pains and found to have a NSTEMI with severe multivessel CAD and preserved LV systolic fx. Medically stabilized and transferred to [facility] for surgical revascularization. Preop imaging negative for prohibitive neurologic risk. No chest pain or hemodynamic instability awaiting surgery. PERTINENT PAST MEDICAL HISTORY: HTN, rheumatoid arthritis, DJD s/p right TKA 06/09/17 MEDICATIONS ON ADMISSION: MVI daily, HCTZ 12.5 mg daily, Humira 40 mg SQ q 14days, Meloxicam 15 mg daily. ALLERGIES/SENSITIVITIES: Penicillin causing a rash CONSULTANTS: none PROCEDURES/IMAGIN/31 Carotid ultrasound: normal sonography 07/23 (Carli): Urgent coronary artery bypass grafting x 4 ([place]-LAD, SV-D1, SV sequentially OM1-OM2). Takedown left internal mammary artery. Endoscopic vein harvest left thigh. Prophylactic AtriClip ligation of the left atrial appendage. ABBREVIATED HOSPITAL COURSE BY ACTIVE PROBLEM LIST: 1. NSTEMI/CAD w preserved LV systolic fx - Fully revascularized w 4 vessel bypass. Extubated in the OR. Hemodynamically stable early postop course. No significant volume overload. Secondary prevention w ASA, BB, and statin. ACEI as allowed by BP. 2. Postoperative PAF - Onset POD#1. VVR. Relatively asx. Treated with amio as per protocol. BB escalated as tolerated for recurrent PAF. Started on Eliquis for [id number] score of 4. SR held 36 hrs prior to discharge. 3. Acute expected blood loss anemia - Stable. No blood transfusions. H/H > 10/ 30 maintained. 4. Recent rt TKA - No ambulatory limitations. Compressive hose and leg elevation during the day. DISCHARGE CLINICAL INFORMATION: Sternum grossly stable. Sternotomy and venotomy CDI, sutured, +Dermabond. HR 60s-80s. SBP 110s-120s. SpO2 91% RA rest, 85% RA activity correcting to 95% on 1 Lpm O2. Wt 0.6kg above admission at 80.5 kilos. Hgb 10.4, HCT 33.1, Plt 282, Na 136, K 4.2, Cr 0.7 DISCHARGE MEDICATIONS: As on admission with the following adjustments: 1. Hold HCTZ while on Lasix. 2. Hold Meloxicam while on Eliquis. NEW prescriptions: 1. Amiodarone 200 mg BID thru 08/09, then 200 mg daily x 2 weeks or as directed by cardiology. 2. Metoprolol tartrate 50 mg BID. 3. Lasix 40 mg daily until back to baseline weight and no swelling. 4. KlorCon 20 meq daily with Lasix. 5. Atorvastatin 10 mg daily or as directed by cardiology. 6. Eliquis 2.5 mg BID x 1 mo or as directed by cardiology. 7. ASA 81 mg daily. 8. Manteno 5/325 one-half to 2 tabs q 6hr prn incisional discomfort. 9. Oxygen @ 1 Lpm with activity or as directed by SpO2. FOLLOW UP APPOINTMENTS: 1. CV surgery: with Dr Boyce at [facility] on 08/03 at 11:15am. 2. Cardiology: with Dr aCputo at [facility] within 3-4 weeks. Appointment to be established during surgical visit. FOLLOW UP TESTING: CXR prior to surgical appointment.
--- NOTE | 2017-08-01 17:04 | ASMTCMCOM ---
CM Note CM Note Notes: Reviewed chart, spoke w/RN and PT. PT recommends outpatient rehab. Patient has supportive who is able to assist with cares. Case Management d/c poc: Home w/family support when medically stable. Follow up at outpatient rehab as directed for heart as well as knee recovery. Case management available if needs change. Date Signed: 07/28/2017 02:27 PM Electronically Signed By:Nini Aceves
== END 2017-07-29 14:45 | disposition home or self-care (01) | DRG 236 ==
LOC: F2W 15:30 → F2N 07-23 12:34 → F2W 07-25 14:20
PROVIDERS: ADMIT Thoracic Surgery (Cardiothoracic Vascular Surgery); ATTEND Thoracic Surgery (Cardiothoracic Vascular Surgery)
PROC: 021109W Bypass Coronary Artery, Two Arteries from Aorta with Autologous Venous Tissue, Open Approach (ICD-10-PCS; principal; 2017-07-23 12:45)
PROC: 02100Z9 Bypass Coronary Artery, One Artery from Left Internal Mammary, Open Approach (ICD-10-PCS; principal; 2017-07-23 12:45)
PROC: 5A1221Z Performance of Cardiac Output, Continuous (ICD-10-PCS; principal; 2017-07-23 12:45)
PROC: 02L70CK Occlusion of Left Atrial Appendage with Extraluminal Device, Open Approach (ICD-10-PCS; principal; 2017-07-23 12:45)
PROC: 06BQ4ZZ Excision of Left Saphenous Vein, Percutaneous Endoscopic Approach (ICD-10-PCS; principal; 2017-07-23 12:45)
DX: I21.4 Non-ST elevation (NSTEMI) myocardial infarction (principal); I23.7 Postinfarction angina; I25.118 Atherosclerotic heart disease of native coronary artery with other forms of angina pectoris; D62 Acute posthemorrhagic anemia; I48.0 Paroxysmal atrial fibrillation; M06.9 Rheumatoid arthritis, unspecified; I10 Essential (primary) hypertension; Z96.651 Presence of right artificial knee joint
CPT/HCPCS: 82947-QW; 97110-GP; 97116-GP; 97161-GP; 97166-GO; 97530-GP; 97535-GO; G0009; G8978-GP-CK; G8979-GP-CI; G8987-GO-CK; G8988-GO-CI; G8989-GO-CI; J0153; J0282; J0690; J1265; J1644; J1815; J1940; J2001; J2250; J2260; J2370; J2405; J2440; J2704; J2720; J2930; J3010; J7060; P9041

== ENCOUNTER → 2017-08-03 | Outpatient (CLI) | payer OTHER | LOC: FIMAGING 10:31 | PROVIDERS: ATTEND Thoracic Surgery (Cardiothoracic Vascular Surgery) | DX: Z95.1 Presence of aortocoronary bypass graft (principal); J90 Pleural effusion, not elsewhere classified; Z98.890 Other specified postprocedural states ==

== ENCOUNTER → 2017-08-18 | Outpatient (CLI) | payer OTHER | LOC: FIMAGING 08:41 | PROVIDERS: ATTEND Thoracic Surgery (Cardiothoracic Vascular Surgery) | DX: J90 Pleural effusion, not elsewhere classified (principal); J98.11 Atelectasis; Z95.1 Presence of aortocoronary bypass graft ==